=== PATIENT | female | born 1955 | race Caucasian/White ===

== ENCOUNTER → 2016-10-17 | Outpatient (CLI) | payer OTHER | LOC: BMCIMAGING 14:54 | PROVIDERS: ATTEND Podiatrist Foot & Ankle Surgery | DX: M20.11 Hallux valgus (acquired), right foot (principal); M20.12 Hallux valgus (acquired), left foot ==

== ENCOUNTER → 2017-04-11 | Outpatient (CLI) | payer OTHER | LOC: BMCIMAGING 08:41 | PROVIDERS: ATTEND Internal Medicine | DX: Z12.31 Encounter for screening mammogram for malignant neoplasm of breast (principal) | CPT/HCPCS: G0202 ==

== ENCOUNTER 2017-05-07 11:06 | Emergency (ER) | payer OTHER ==
--- NOTE | 2017-05-07 11:26 | CPEKG ---
Heart Rate: 75 RR Interval: 800 P-R Interval: 156 QRSD Interval: 68 QT Interval: 388 QTC Interval: 434 P Brooks: -3 QRS Brooks: 26 T Wave Brooks: 40 EKG Severity - NORMAL ECG - EKG Impression: SINUS RHYTHM Electronically Signed By: Navneet Lester 07-May-2017 15:44:20
--- NOTE | 2017-05-07 11:47 | EDPHY ---
H & P Time Seen by Provider: 05/07/17 11:46 HPI/ROS: Chief complaint. Dizzy HPI. 7-year-old female presents emergency department with dizziness. 2 days ago she rolled over in bed and was suddenly dizzy. She had same symptoms this morning. Slightly off balance she walking. Worse with bending over and changing head physician. She has had similar symptoms previously which was her early symptom of a TIA. Further cardiac workup after her TIA showed a mass on her heart which is removed 2 years ago. Recent echocardiogram was normal. Otherwise no history of vertigo. No recent upper respiratory symptoms. No change in her hearing that she has chronic tinnitus. She is on blood thinners of aspirin daily. No chest discomfort or trouble breathing. No focal weakness or paresthesias. No change in vision ROS Constitutional. no fever/chills, no weakness Eyes. no problems with vision ENT. no sore throat, no nasal drainage Cardiovascular. no chest pain Respiratory. no shortness of breath, no cough Abdominal. no abdominal pain, no nausea/vomiting, no diarrhea . no problems urinating MS. no calf pain/swelling, no neck/back pain, no joint pain Skin. no rash Lymph. no swollen glands Neuro. 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 No nystagmus ENT, Mouth: Mucous membranes are moist. Respiratory: There are no retractions, lungs are clear to auscultation. Cardiovascular: Regular rate and rhythm. Gastrointestinal: Abdomen is soft and nontender, no masses, bowel sounds normal. Neurological: Awake and alert, sensory and motor exams grossly normal. Speech is normal. Cranial nerves are normal. There is no pronator drift. Finger-to- nose and [id number] are intact Skin: Warm and dry, no rashes. Musculoskeletal: Neck is supple nontender. Extremities symmetrical, full range of motion. Psychiatric: Patient is oriented X 3, there is no agitation. Constitutional: Initial Vital Signs Temperature (C) 36.7 C 05/07/17 11:14 Heart Rate 80 05/07/17 11:14 Respiratory Rate 18 05/07/17 11:14 Blood Pressure 138/85 H 05/07/17 11:14 O2 Sat (%) 96 05/07/17 11:14 O2 Delivery Mode Room Air Allergies/Adverse Reactions: No Known Allergies Allergy (Verified 05/07/17 11:13) Home Medications: Medication Instructions Recorded Aspirin EC [Aspirin EC 81 mg (*)] 81 mg PO DAILY 05/07/17 Meclizine HCl [Meclizine HCl 25 mg 25 mg PO TID PRN #10 tab 05/07/17 (RX,OTC)] Medical Decision Making - Diagnostics EKG Interpretation: EKG interpreted by me shows normal sinus rhythm normal interval and axis. QRS is normal there is no significant ST elevation or depression. No arrhythmia. The rate is 75 Imaging Results: Imaging Impressions Brain MRI 05/07/17 12:07 Impression: 1. Normal brain. No intracranial hemorrhage, ischemia, or white matter disease. 2. 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 Findings discussed with Emergency Department physician, Navneet Lester on 2016, 14:14. MRI without and with contrast reviewed by me and discussed with Dr. Aguilar shows no residual evidence of CVA or TIA. At also no evidence of recurrent ischemic event Procedures: IV normal saline, monitor. Meclizine by mouth. Ativan prior to MRI ED Course/Re-evaluation: Re-evaluation 2:20 p.m.--patient's symptoms have resolved. She feels well. Neurologically she is conversational and intact. Patient and I discussed imaging lab EKG findings. We discussed treatment plan including criteria for return importance of follow-up further evaluation. She expresses understanding and agreement Differential Diagnosis: This is likely peripheral labyrinthitis. As the patient had had a TIA/CVA previously with similar symptoms as her previous TIA CVA was and the PA's cerebellar area the patient did have MRI. No evidence for recurrent ischemia - Data Points Laboratory Results: Laboratory Results 05/07/17 11:35 05/07/17 11:35 05/07/17 05/07/17 11:35 11:35 WBC 5.67 10^3/uL 10^3/uL (3.80-9.50) RBC 5.26 10^6/uL 10^6/uL (4.18-5.33) Hgb 16.3 g/dL g/dL (12.6-16.3) Hct 45.9 % % (38.0-47.0) MCV 87.3 fL fL (81.5-99.8) MCH 31.0 pg pg (27.9-34.1) MCHC 35.5 g/dL g/dL (32.4-36.7) RDW 12.8 % % (11.5-15.2) Plt Count 181 10^3/uL 10^3/uL (150-400) MPV 10.1 fL fL (8.7-11.7) Neut % (Auto) 78.4 % H % (39.3-74.2) Lymph % (Auto) 14.3 % L % (15.0-45.0) Storey % (Auto) 6.2 % % (4.5-13.0) Eos % (Auto) 0.4 % L % (0.6-7.6) Baso % (Auto) 0.5 % % (0.3-1.7) Nucleat RBC Rel Count 0.0 % % (0.0-0.2) Absolute Neuts (auto) 4.45 10^3/uL 10^3/uL (1.70-6.50) Absolute Lymphs (auto) 0.81 10^3/uL L 10^3/uL (1.00-3.00) Absolute Monos (auto) 0.35 10^3/uL 10^3/uL (0.30-0.80) Absolute Eos (auto) 0.02 10^3/uL L 10^3/uL (0.03-0.40) Absolute Basos (auto) 0.03 10^3/uL 10^3/uL (0.02-0.10) Absolute Nucleated RBC 0.00 10^3/uL 10^3/uL (0-0.01) Immature Gran % 0.2 % % (0.0-1.1) Immature Gran # 0.01 10^3/uL 10^3/uL (0.00-0.10) Sodium 142 mEq/L mEq/L (134-144) Potassium 3.9 mEq/L mEq/L (3.5-5.2) Chloride 109 mEq/L mEq/L (97-110) Carbon Dioxide 21 mEq/l L mEq/l (22-31) Anion Gap 12 mEq/L mEq/L (8-16) BUN 13 mg/dL mg/dL (7-23) Creatinine 0.7 mg/dL mg/dL (0.6-1.0) Estimated GFR > 60 Glucose 114 mg/dL H mg/dL (70-100) Calcium 9.6 mg/dL mg/dL (8.5-10.4) Medications Given: Discontinued Medications Sodium Chloride (Ns) 1,000 mls @ 0 mls/hr IV ONCE ONE; Wide Open PRN Reason: Protocol Stop: 05/07/17 12:07 Last Admin: 05/07/17 12:30 Dose: 1,000 mls Lorazepam (Ativan) 1 mg PO EDNOW ONE Stop: 05/07/17 12:08 Last Admin: 05/07/17 12:29 Dose: 1 mg Meclizine HCl (Meclizine Hcl) 25 mg PO EDNOW ONE Stop: 05/07/17 12:08 Last Admin: 05/07/17 12:29 Dose: 25 mg Departure - Departure Disposition: Home, Routine, Self-Care Clinical Impression: Vertigo Condition: Good Instructions: Vertigo (ED) Additional Instructions: Meclizine as needed for dizziness. Activity as tolerated. Return for worsening symptoms. Re-evaluation by Ear Nose Throat physician if not improved in the next 2-3 days Referrals: Becca Handley MD [Primary Care Provider] - As per Instructions Navneet Contreras MD [Medical Doctor] - 2-3 days, if not improved Prescriptions: Meclizine HCl [Meclizine HCl 25 mg (RX,OTC)] 25 mg PO TID PRN #10 tab PRN Reason: Dizziness
[2017-05-07] MEDS ORDERED: NS 1,000 ML IV ONE (12:06)
[2017-05-07] MEDS ORDERED: LORazepam 1 MG TAB PO ONE (12:07)
[2017-05-07] MEDS ORDERED: MECLIZINE HCL 25 MG TAB PO ONE (12:07)
[2017-05-07 12:13] LABS: % IMMATURE GRANULYOCYTES 0.2 % (0.0-1.1); ABSOLUTE IMMATURE GRANULOCYTES 0.01 10^3/uL (0.00-0.10); ADD DIFF? NO; ADD MORPH? NO; ADD SCAN? NO; ATYPICAL LYMPHOCYTE FLAG 0 (0-99); FRAGMENT RBC FLAG 0 (0-99); HEMATOCRIT 45.9 % (38.0-47.0); HEMOGLOBIN 16.3 g/dL (12.6-16.3); LEFT SHIFT FLG 0 (0-99); LIPEMIA HEMOLYSIS FLAG 90 (0-99); MEAN CELL HEMOGLOBIN CONCENTR. 35.5 g/dL (32.4-36.7); MEAN CELL VOLUME 87.3 fL (81.5-99.8); MEAN PLATELET VOLUME 10.1 fL (8.7-11.7); PLATELET CLUMPS FLAG 0 (0-99); PLATELET COUNT 181 10^3/uL (150-400); RED BLOOD CELL COUNT 5.26 10^6/uL (4.18-5.33); RED CELL DISTRIBUTION WIDTH 12.8 % (11.5-15.2)
[2017-05-07 12:18] LABS: ANION GAP 12 mEq/L (8-16); CALCIUM 9.6 mg/dL (8.5-10.4); CARBON DIOXIDE 21 mEq/l (22-31); CHLORIDE 109 mEq/L (97-110); CREATININE 0.7 mg/dL (0.6-1.0); GLOMERULAR FILTRATION RATE > 60; GLUCOSE 114 mg/dL (70-100); POTASSIUM 3.9 mEq/L (3.5-5.2); SODIUM 142 mEq/L (134-144)
[2017-05-07] MEDS ORDERED: GADOBUTROL 10 ML VIAL IVP ONE (13:14)
[2017-05-07 14:20] VITALS: TEMP 98.2
[2017-05-07 14:47] VITALS: BP 120/71; PULSE 69; RESP 18; O2SAT 96
== END 2017-05-07 14:45 | disposition home or self-care (01) ==
DX: R42 Dizziness and giddiness (principal); E86.9 Volume depletion, unspecified; Z79.82 Long term (current) use of aspirin
CPT/HCPCS: A9585

== ENCOUNTER → 2017-11-19 | Outpatient (CLI) | payer OTHER ==
--- NOTE | 2017-11-20 11:06 | CPEEG ---
[f rep st] ELECTROENCEPHALOGRAM DATE OF STUDY: 11/19/2017 INTERPRETATION: Normal EEG during wakefulness and sleep. There were no potentially epileptogenic ab normalities present during the recording. REPORT: This EEG contains 10-11 Hz alpha activity over the posterior head regions. There was promin ent beta frequency activity in the background. This can be a normal physiologic variant or sometimes related to medication effect. There was no abnormal activation at rest, during photic stimulation, or hyperventilation. The patient became drowsy and intermittently fell asleep during the study. The re was no abnormal activation during drowsiness, sleep, or during times of arousal. /[id number]/MODL
== END ==
LOC: FCPNEURO 13:58
PROVIDERS: ATTEND Psychiatry & Neurology Neurology
DX: R42 Dizziness and giddiness (principal)

== ENCOUNTER → 2018-05-02 | Outpatient (CLI) | payer OTHER | LOC: BMCIMAGING 15:04 | PROVIDERS: ATTEND Internal Medicine | DX: Z12.31 Encounter for screening mammogram for malignant neoplasm of breast (principal) ==